=== PATIENT | male | born 1960 | race Caucasian/White ===

== ENCOUNTER 2018-02-28 13:22 | Emergency (ER) | payer OTHER, SELFPAY ==
[2018-02-28 13:23] VITALS: BP 172/92; PULSE 67; RESP 18; TEMP 36.6; O2SAT 99; BMI 27.5
[2018-02-28 13:52] VITALS: BP 165/98; PULSE 70; RESP 14; O2SAT 99
--- NOTE | 2018-02-28 15:07 | ED.VISSUMM ---
- ER Visit Summary Date of Service: 02/28/18 Chief Complaint: Acute on chronic hypertension with headaches History of Present Illness: The patient is a 57 M for long-standing hypertension. Yesterday he saw his primary care physician's office who changed his blood pressure medication. Previously was taking hydrochlorothiazide and metoprolol which they stopped the metoprolol and start him on lisinopril. His blood pressures have been running higher and is been having frequent headaches recently. Today he said he felt like his head was in a place. States that he is feeling much better. Denies any thunderclap headache. Denies any neurological symptoms. He is on no blood thinners. There is no family history of intracranial bleeds or aneurysms. He denies any head trauma. Physical Examination: Well-appearing male vital signs stable. Initial blood pressure 165/98. While I am in the room his blood pressure is 147/94. No distress. H EENT exam unremarkable. Neck nontender no lymphadenopathy. Lungs clear to auscultation bilaterally. Heart regular rate and rhythm no murmur. Abdomen soft nontender. Moving all 4 extremities. Neurovascularly intact. Neurologic exam normal. He is awake and alert. He is answering questions. Following commands. Normal speech. No facial droop. Pupils round reactive light. Extra motions are. 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 Dorsi and plantar flexion intact. Fingertip to nose heel lagos all within normal limits. Able to flex his chin to his chest. NIH score 0. Test Results: CT of the brain without contrast shows no acute abnormality. Read by the radiologist and reviewed by me. Emergency Department Course and Treatment: P.o. Tylenol clinically patient looks good. His neurologic exam is normal. Patient is doing well on multiple repeat exams. His most recent blood pressure was 150/88. His headache is resolving. His neurologic exam remains normal. Treatment Plan: Discharged home. Log his blood pressures. Follow-up his primary care physician for blood pressure medication adjustments as needed. Disposition: Discharge Impression: Acute on chronic hypertension Acute headache secondary to elevated blood pressure This note was generated with [employer] dictation software. It may contain incorrect words, spelling, and punctuation that were not noted in review of the chart prior to signing ED Disposition - Plan for ED Patient: Chief Complaint: Hypertension Referrals: Chris Webb DO [Primary Care Provider] -
--- NOTE | 2018-02-28 15:11 | ED.DCSUM_ITS ---
- ER Visit Summary Date of Service: 02/28/18 Chief Complaint: Acute on chronic hypertension with headaches History of Present Illness: The patient is a 57 M for long-standing hypertension. Yesterday he saw his primary care physician's office who changed his blood pressure medication. Previously was taking hydrochlorothiazide and metoprolol which they stopped the metoprolol and start him on lisinopril. His blood pressures have been running higher and is been having frequent headaches recently. Today he said he felt like his head was in a place. States that he is feeling much better. Denies any thunderclap headache. Denies any neurological symptoms. He is on no blood thinners. There is no family history of intracranial bleeds or aneurysms. He denies any head trauma. Physical Examination: Well-appearing male vital signs stable. Initial blood pressure 165/98. While I am in the room his blood pressure is 147/94. No distress. H EENT exam unremarkable. Neck nontender no lymphadenopathy. Lungs clear to auscultation bilaterally. Heart regular rate and rhythm no murmur. Abdomen soft nontender. Moving all 4 extremities. Neurovascularly intact. Neurologic exam normal. He is awake and alert. He is answering questions. Following commands. Normal speech. No facial droop. Pupils round reactive light. Extra motions are. 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 Dorsi and plantar flexion intact. Fingertip to nose heel lagos all within normal limits. Able to flex his chin to his chest. NIH score 0. Test Results: CT of the brain without contrast shows no acute abnormality. Read by the radiologist and reviewed by me. Emergency Department Course and Treatment: P.o. Tylenol clinically patient looks good. His neurologic exam is normal. Patient is doing well on multiple repeat exams. His most recent blood pressure was 150/88. His headache is resolving. His neurologic exam remains normal. Treatment Plan: Discharged home. Log his blood pressures. Follow-up his primary care physician for blood pressure medication adjustments as needed. Disposition: Discharge Impression: Acute on chronic hypertension Acute headache secondary to elevated blood pressure This note was generated with [employer] dictation software. It may contain incorrect words, spelling, and punctuation that were not noted in review of the chart prior to signing ED Disposition - Plan for ED Patient: Chief Complaint: Hypertension Referrals: Chris Webb DO [Primary Care Provider] -
[2018-02-28] MEDS: Acetaminophen 500 MG Tablet 1000 MG PO (15:18)
[2018-02-28 15:22] VITALS: BP 154/98; PULSE 63; RESP 16; O2SAT 99
--- NOTE | 2018-02-28 16:01 | ED.DEP ---
ED Disposition - Plan for ED Patient: Disposition: Home or Assisted Living Chief Complaint: Hypertension Referrals: Chris Webb DO [Primary Care Provider] - 1-2 Weeks Additional Instructions: Continue current medications. Follow-up with your doctor on your blood pressure
[2018-02-28 16:07] VITALS: BP 143/78; PULSE 60; RESP 14; O2SAT 97
--- NOTE | 2018-02-28 16:08 | ED.RN ---
REVIEWED D/C INSTRUCTIONS, FOLLOW UP CARE, AND S/S THAT WOULD WARRANT A RETURN TO THE ED WITH PT. PT VERBALIZED AN UNDERSTANDING AND DENIES FURTHER QUESTIONS FOR THIS RN. PT SKIN P/W/D, RESP EVEN AND UNLABORED, PT A&O X 3, NO DISTRESS NOTED. PT AMBULATED OUT OF ED, GAIT STEADY.
== END 2018-02-28 16:09 | disposition home or self-care (01) ==
PROVIDERS: Emergency Provider Emergency Medicine; Family Provider Student in an Organized Health Care Education/Training Program; PCP Student in an Organized Health Care Education/Training Program
DX: R51 Headache (principal); I10 Essential (primary) hypertension; E78.00 Pure hypercholesterolemia, unspecified; K21.9 Gastro-esophageal reflux disease without esophagitis; Z79.899 Other long term (current) drug therapy
CPT/HCPCS: 70450; 99285; A4216

== ENCOUNTER → 2018-07-14 10:08 | Outpatient (CLI) | payer OTHER, SELFPAY ==
[2018-07-14 10:49] LABS: PSA,Total- Diagnostic 1.15 ng/mL (0.0-4.0)
== END ==
PROVIDERS: Family Provider Student in an Organized Health Care Education/Training Program; PCP Student in an Organized Health Care Education/Training Program; Referring Provider Urology; Visit Provider Urology
DX: R36.1 Hematospermia (principal)
CPT/HCPCS: 36415; 84153

== ENCOUNTER → 2019-12-28 | Outpatient (CLI) | payer OTHER, SELFPAY ==
[2019-12-28 11:00] LABS: PSA,Total - Annual Screen 1.28 ng/mL (0.00-4.00)
== END | disposition home or self-care (01) ==
LOC: LAB 09:05
PROVIDERS: PCP Student in an Organized Health Care Education/Training Program; Referring Provider Urology; Visit Provider Urology
DX: Z12.5 Encounter for screening for malignant neoplasm of prostate (principal)
CPT/HCPCS: 36415; 84153; G0103

== ENCOUNTER → 2022-02-27 | Outpatient (CLI) | payer BC, SELFPAY ==
[2022-02-27 11:40] LABS: PSA,Total - Annual Screen 1.59 ng/mL (0.00-4.00)
== END | disposition home or self-care (01) ==
LOC: LAB 10:01
PROVIDERS: PCP Student in an Organized Health Care Education/Training Program; Referring Provider Registered Nurse; Visit Provider Registered Nurse
DX: Z12.5 Encounter for screening for malignant neoplasm of prostate (principal)
CPT/HCPCS: 36415; 84153; G0103

== ENCOUNTER → 2023-02-28 | Outpatient (CLI) | payer OTHER, SELFPAY ==
[2023-02-28 17:20] LABS: PSA,Total - Annual Screen 1.79 ng/mL (0.00-4.00)
== END | disposition home or self-care (01) ==
PROVIDERS: PCP Student in an Organized Health Care Education/Training Program; Referring Provider Urology; Visit Provider Urology
DX: Z12.5 Encounter for screening for malignant neoplasm of prostate (principal)
CPT/HCPCS: 36415; 84153; G0103

== ENCOUNTER → 2024-03-16 | Outpatient (CLI) | payer OTHER, SELFPAY ==
[2024-03-16 10:44] LABS: PSA,Total - Annual Screen 1.51 ng/mL (0.00-4.00)
== END | disposition home or self-care (01) ==
LOC: OLS.ABSOLU 09:16 → LAB 11:23
PROVIDERS: PCP Student in an Organized Health Care Education/Training Program; Referring Provider Urology; Visit Provider Urology
DX: Z12.5 Encounter for screening for malignant neoplasm of prostate (principal)
CPT/HCPCS: 36415; 84153; G0103

== ENCOUNTER → 2025-04-13 | Outpatient (CLI) | payer OTHER, SELFPAY ==
[2025-04-13 11:00] LABS: PSA,Total - Annual Screen 1.67 ng/mL (0.02-4.00)
== END | disposition home or self-care (01) ==
LOC: LAB 08:47
PROVIDERS: PCP Student in an Organized Health Care Education/Training Program; Referring Provider Urology; Visit Provider Urology
DX: Z12.5 Encounter for screening for malignant neoplasm of prostate (principal)
CPT/HCPCS: 36415; 84153; G0103